=== PATIENT | male | born 1940 | race Caucasian/White ===

== ENCOUNTER 2024-09-26 10:28 | Outpatient (CLI) | payer MEDICARE, OTHER, SELFPAY ==
--- NOTE | 2024-09-26 10:41 | XR_ITS ---
PROCEDURE INFORMATION: Exam: XR Right Foot Complete; Alignment Exam date and time: 09/26/2024 10:50 AM Age: 84 years old Clinical indication: Pain; Foot; Right; Additional info: Foot pain TECHNIQUE: Imaging protocol: Radiologic exam of the right foot. Views: 3 or more views. COMPARISON: No relevant prior studies available. FINDINGS: Bones/joints: Severe joint space narrowing with subchondral sclerosis, radiolucent cysts, and large lateral osteophytes involving the 1st MTP joint. Osteophyte along the dorsal head of the 1st metatarsal. No fractures, dislocations, or focal bone lesions. Plantar and Achilles heel spurs. Soft tissues: Normal. 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
== END 2024-09-26 23:59 | disposition home or self-care (01) ==
LOC: RAD 10:37
PROVIDERS: PCP Family Medicine; Visit Provider Podiatrist
DX: M79.671 Pain in right foot (principal)
CPT/HCPCS: 73630

== ENCOUNTER 2024-10-20 13:30 | Outpatient (CLI) | payer MEDICARE, OTHER, SELFPAY | END 2024-10-20 23:59 | disposition home or self-care (01) | LOC: LAB.DROPOF 10-21 14:31 | PROVIDERS: PCP Podiatrist; Visit Provider Podiatrist | DX: L03.031 Cellulitis of right toe (principal) | CPT/HCPCS: 87070; 87077; 87186; 87205 ==